=== PATIENT | female | born 1990 | race Two or more races ===

== ENCOUNTER 2018-09-10 22:10 | Emergency (ER) | payer OTHER ==
[~2018-09-10] VITALS: Ht 152.4 cm; Wt 77.3 kg
[2018-09-10 22:15] VITALS: BP 134/33
--- NOTE | 2018-09-10 22:29 | NUR ---
FELL AND HIT BACK OF HEAD NO LOC 15 min ago
== END 2018-09-10 23:53 | disposition home or self-care (01) ==
LOC: ED 23:45
DX: S06.9X1A Unspecified intracranial injury with loss of consciousness of 30 minutes or less, initial encounter (principal); W01.0XXA Fall on same level from slipping, tripping and stumbling without subsequent striking against object, initial encounter; Y93.89 Activity, other specified; Y92.098 Other place in other non-institutional residence as the place of occurrence of the external cause; Y99.8 Other external cause status
CPT/HCPCS: 70450; 70486; 99284